=== PATIENT | female | born 1955 | race Asian ===

== ENCOUNTER → 2017-01-05 | Outpatient (CLI) | payer BC ==
[2017-01-05 11:25] LABS: ALT/SGPT 30 U/L (12-78); AST/SGOT 17 U/L (15-37); BLOOD UREA NITROGEN 17 mg/dl (7-18); BUN/CREATININE RATIO 22.6 (10-20); CALCIUM 9.2 mg/dl (8.5-10.1); CARBON DIOXIDE 27 mmol/L (21-32); CHLORIDE 104 mmol/L (98-107); CREATININE 0.77 mg/dl (0.60-1.20); GLUCOSE 89 mg/dl (70-99); POTASSIUM 3.7 mmol/L (3.5-5.1); SODIUM 140 mmol/L (136-145)
[2017-01-05 11:28] LABS: CHOLESTEROL 171 mg/dl (0-200); CHOLESTEROL/HDL RATIO 2.6; HDL CHOLESTEROL 65 mg/dl; LDL CHOLESTEROL CALCULATED 93 mg/dl; TRIGLYCERIDES 65 mg/dl (0-150); VERY LOW DENSITY LIPOPROT CALC 13 mg/dl
== END | disposition home or self-care (01) ==
LOC: C.LAB1850 09:17
PROVIDERS: ATTEND Internal Medicine
DX: E78.00 Pure hypercholesterolemia, unspecified (principal); M85.80 Other specified disorders of bone density and structure, unspecified site; E55.9 Vitamin D deficiency, unspecified

== ENCOUNTER → 2017-09-24 | Outpatient (CLI) | payer OTHER | END | disposition home or self-care (01) | LOC: C.MAMM 09:01 | PROVIDERS: ATTEND Internal Medicine | DX: M85.80 Other specified disorders of bone density and structure, unspecified site (principal) ==

== ENCOUNTER → 2017-10-07 | Outpatient (CLI) | payer OTHER ==
--- NOTE | 2017-10-07 13:52 | MAMMOGRAPHY REPORT ---
BILATERAL DIGITAL SCREENING MAMMOGRAM TOMOSYNTHESIS WITH CAD: 10/07/2017 CLINICAL HISTORY: Routine screening. TECHNIQUE: The study was acquired using full field digital technology and interpreted from soft copy. Breast tomosynthesis in addition to standard 2D mammography was performed. Current study was also ev aluated with a Computer Aided Detection (CAD) system. COMPARISON: Comparison is made to exams dated: 03/08/2015 mammogram, 12/30/2013 mammogram, 04/06/2012 m ammogram, 07/30/2010 mammogram, 06/26/2009 mammogram - [facility], and 09/29/2006. BREAST COMPOSITION: The tissue of both breasts is heterogeneously dense, which may obscure small mass es. FINDINGS: No suspicious masses, calcifications, or areas of architectural distortion are noted in either breast . There has been no significant interval change compared to prior exams. IMPRESSION: ACR BI-RADS CATEGORY 1: NEGATIVE There is no mammographic evidence of malignancy. A 1 year screening mammogram is recommended.( [id number]) The patient will receive written notification of the results. Some breast cancers are not detected with mammography. A negative mammographic report should not danielle y biopsy if a clinically suggestive mass is present. Vicky Chen M.D. ah/:10/07/2017 12:58:24 Picture Booker: RT Dick(Twyla)(M), [facility] letter sent: Normal 1/2 BI-RADS Code: ACR BI-RADS Category 1: Negative
== END | disposition home or self-care (01) ==
LOC: C.MAMM 10:50
PROVIDERS: ATTEND Obstetrics & Gynecology
DX: Z12.31 Encounter for screening mammogram for malignant neoplasm of breast (principal)

== ENCOUNTER 2022-07-27 10:07 | Inpatient (IN) ==
[2022-07-27] MEDS ORDERED: ALBUT/IPRATROP 3MG/0.5MG NEB 3 ML VIAL NEB STA (10:22)
--- NOTE | 2022-07-27 10:24 | Emergency Department Note ---
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 mmHg VBG HCO3 mmol/L VBG O2 Saturation % VBG Base Excess mEq/L Sodium (136-145) mmol/L Potassium (3.5-5.1) mmol/L Chloride (98-107) mmol/L Carbon Dioxide (21-32) mmol/L Anion Gap (3-11) BUN (6-23) mg/dl Creatinine (0.6-1.2) mg/dl Est Cr Clr Drug Dosing Est GFR ( Amer) ml/min Est GFR (Non-Af Amer) ml/min BUN/Creatinine Ratio (10-20) Glucose (70-99(Fasting)) mg/dl POC Glucose 68 L* (70-99) mg/dl Lactate (0.4-2.0) mmol/L Calcium (8.6-10.3) mg/dl Magnesium (1.7-2.4) mg/dl Total Bilirubin (0.2-1.0) mg/dl Direct Bilirubin (0-0.2) mg/dl AST (13-39) U/L ALT (7-52) U/L Alkaline Phosphatase (34-104) U/L Ammonia 33.0 Troponin I High Sens (0-14) pg/ml B-Natriuretic Peptide (0-100) pg/ml Total Protein (6.0-8.3) gm/dl Albumin (3.4-5.0) gm/dl Procalcitonin (0-0.5) ng/ml Ethyl Alcohol mg/dL < 10.0 (<10.0) mg/dl Adenovirus (PCR) (NotDetected) B. pertussis DNA (PCR) (NotDetected) B.parapertussis DNA PCR (NotDetected) C. pneumoniae DNA (PCR) (NotDetected) Coronavirus OC43 (PCR) (NotDetected) Coronavirus HKU1 (PCR) (NotDetected) Coronavirus 229E (PCR) (NotDetected) SARS-CoV-2 (PCR) (NotDetected) Coronavirus NL63 (PCR) (NotDetected) Human Metapneumovir PCR (NotDetected) Influenza Type A (PCR) (NotDetected) Influenza Type B (PCR) (NotDetected) M. pneumoniae (PCR) (NotDetected) Parainfluenza 1 (PCR) (NotDetected) Parainfluenza 2 (PCR) (NotDetected) Parainfluenza 3 (PCR) (NotDetected) Parainfluenza 4 (PCR) (NotDetected) RSV (PCR) (NotDetected) Entero/Rhino (PCR) (NotDetected) 07/27/22 Range/Units 12:21 WBC (4.8-10.8) K/ul RBC (4.20-5.40) M/uL Hgb (12.0-16.0) g/dl Hct (37.0-47.0) % MCV (80.0-100.0) fL MCH (25.0-34.0) pg MCHC (32.0-36.0) g/dL RDW Std Deviation (36.4-46.3) fL RDW Coeff of Lin (11.5-14.5) % Plt Count (130-400) K/uL MPV (9.4-12.4) fL Immature Gran % (Auto) % Neut % (Auto) % Lymph % (Auto) % [place] % (Auto) % Eos % (Auto) % Baso % (Auto) % Neut # (Auto) (1.40-6.50) K/uL Lymph # (Auto) (1.2-3.4) K/uL [place] # (Auto) (0.11-0.59) K/uL Eos # (Auto) (0-0.50) K/uL Baso # (Auto) (0-0.2) K/uL Immature Gran # (Auto) (0.01-0.20) K/uL Toxic Vacuolation Dohle Bodies Polychromasia Echinocytes PT (9.0-12.0) Seconds INR (0.9-1.1) VBG pH (7.36-7.41) VBG pCO2 (38-50) mmHg VBG pO2 mmHg VBG HCO3 mmol/L VBG O2 Saturation % VBG Base Excess mEq/L Sodium (136-145) mmol/L Potassium (3.5-5.1) mmol/L Chloride (98-107) mmol/L Carbon Dioxide (21-32) mmol/L Anion Gap (3-11) BUN (6-23) mg/dl Creatinine (0.6-1.2) mg/dl Est Cr Clr Drug Dosing Est GFR ( Amer) ml/min Est GFR (Non-Af Amer) ml/min BUN/Creatinine Ratio (10-20) Glucose (70-99(Fasting)) mg/dl POC Glucose (70-99) mg/dl Lactate 9.0 H* (0.4-2.0) mmol/L Calcium (8.6-10.3) mg/dl Magnesium (1.7-2.4) mg/dl Total Bilirubin (0.2-1.0) mg/dl Direct Bilirubin (0-0.2) mg/dl AST (13-39) U/L ALT (7-52) U/L Alkaline Phosphatase (34-104) U/L Ammonia Troponin I High Sens (0-14) pg/ml B-Natriuretic Peptide (0-100) pg/ml Total Protein (6.0-8.3) gm/dl Albumin (3.4-5.0) gm/dl Procalcitonin (0-0.5) ng/ml Ethyl Alcohol mg/dL (<10.0) mg/dl Adenovirus (PCR) (NotDetected) B. pertussis DNA (PCR) (NotDetected) B.parapertussis DNA PCR (NotDetected) C. pneumoniae DNA (PCR) (NotDetected) Coronavirus OC43 (PCR) (NotDetected) Coronavirus HKU1 (PCR) (NotDetected) Coronavirus 229E (PCR) (NotDetected) SARS-CoV-2 (PCR) (NotDetected) Coronavirus NL63 (PCR) (NotDetected) Human Metapneumovir PCR (NotDetected) Influenza Type A (PCR) (NotDetected) Influenza Type B (PCR) (NotDetected) M. pneumoniae (PCR) (NotDetected) Parainfluenza 1 (PCR) (NotDetected) Parainfluenza 2 (PCR) (NotDetected) Parainfluenza 3 (PCR) (NotDetected) Parainfluenza 4 (PCR) (NotDetected) RSV (PCR) (NotDetected) Entero/Rhino (PCR) (NotDetected) Administered Medications Norepinephrine Bitartrate (Levophed/D5w) 4 mg in 250 mls @ 134.438 mls/hr IV .Q1H52M [facility]; Protocol Stop: 08/26/22 13:59 Last Admin: 07/27/22 16:09 Dose: 0.5 mcg/kg/min, 134.4 mls/hr Documented By: CHRISTINE Co-signed By: WHIT Titration: 07/27/22 16:09 Dose: 0.5 mcg/kg/min, 134.4 mls/hr Documented By: CHRISTINE Co-signed By: WHIT Admin: 07/27/22 15:01 Dose: 0.5 mcg/kg/min, 134.4 mls/hr Documented By: OMEGA Co-signed By: MAURIZIO Vasopressin 20 units/ Sodium (Chloride) 101 mls @ 12.12 mls/hr IV .Q8H20M [facility] Stop: 08/26/22 14:14 Last Admin: 07/27/22 15:01 Dose: 0.04 unit/min, 12.1 mls/hr Documented By: OMEGA Co-signed By: MAURIZIO Sodium Bicarbonate 150 meq/ (Dextrose) 1,150 mls @ 150 mls/hr IV .Q7H40M [facility] Stop: 08/26/22 14:14 Last Admin: 07/27/22 15:04 Dose: 150 mls/hr Documented By: OMEGA Phytonadione 5 mg/ Dextrose 50.5 mls @ 101 mls/hr IV ONE ONE Stop: 07/27/22 16:59 Last Admin: 07/27/22 16:38 Dose: 101 mls/hr Documented By: CHRISTINE Fentanyl Citrate (Fentanyl Citrate) 2,500 mcg in 250 mls @ 2.5 mls/hr IV .Q96H [facility]; Protocol Stop: 08/10/22 16:29 Last Admin: 07/27/22 16:38 Dose: 25 mcg/hr, 2.5 mls/hr Documented By: CHRISTINE Co-signed By: CMP Discontinued Medications Albuterol (Albut/Ipratrop 3mg/0.5mg Neb 3 Ml Vial) 3 ml NEB NOW STA; Protocol Stop: 07/27/22 10:23 Last Admin: 07/27/22 11:06 Dose: 3 ml Documented By: OMEGA Sodium Chloride (Nss 1000ml) 1,000 mls @ 999 mls/hr IV .Q1H1M [facility] Stop: 07/27/22 11:30 Last Infusion: 07/27/22 16:11 Dose: 0 mls/hr Documented By: Admin: 07/27/22 13:32 Dose: 999 mls/hr Documented By: OMEGA Sodium Chloride (Nss 1000ml) 1,000 mls @ 999 mls/hr IV .Q1H1M ONE Stop: 07/27/22 11:44 Last Infusion: 07/27/22 16:11 Dose: 0 mls/hr Documented By: Admin: 07/27/22 13:32 Dose: 999 mls/hr Documented By: OMEGA Sodium Chloride (Nss 1000ml) 1,000 mls @ 999 mls/hr IV .Q1H1M ONE Stop: 07/27/22 12:04 Last Infusion: 07/27/22 16:11 Dose: 0 mls/hr Documented By: Admin: 07/27/22 14:51 Dose: 999 mls/hr Documented By: OMEGA Ceftriaxone Sodium (Rocephin) 2,000 mg in 70 mls @ 140 mls/hr IV NOW STA Stop: 07/27/22 11:48 Last Infusion: 07/27/22 16:11 Dose: 0 mls/hr Documented By: Admin: 07/27/22 13:35 Dose: 140 mls/hr Documented By: OMEGA Vancomycin HCl 1,500 mg/ (Sodium Chloride) 530 mls @ 200 mls/hr IV NOW STA; Protocol Stop: 07/27/22 14:02 Last Infusion: 07/27/22 16:11 Dose: 0 mls/hr Documented By: Admin: 07/27/22 12:00 Dose: 200 mls/hr Documented By: OMEGA Sodium Bicarbonate 150 meq/ (Sterile Water) 1,150 mls @ 150 mls/hr IV .Q7H40M [facility] Stop: 08/26/22 14:14 Last Admin: 07/27/22 16:34 Dose: Not Given Documented By: CHRISTINE Piperacillin Sod/Tazobactam Sod (Zosyn) 4.5 gm in 120 mls @ 240 mls/hr IV NOW ONE Stop: 07/27/22 14:45 Last Admin: 07/27/22 16:08 Dose: Not Given Documented By: CHRISTINE Calcium Chloride 1,000 mg/ (Dextrose) 60 mls @ 240 mls/hr IV NOW STA Stop: 07/27/22 15:44 Last Infusion: 07/27/22 16:34 Dose: 0 mls/hr Documented By: Admin: 07/27/22 16:08 Dose: 240 mls/hr Documented By: CHRISTINE Ioversol (Optiray 320 500ml) 113 ml IV ONCE ONE Stop: 07/27/22 10:57 Last Admin: 07/27/22 10:56 Dose: 113 ml Documented By: NUPUR Miscellaneous (Rapid Sequence Induction Bag) Confirm Administered Dose 1 each N/A .STK-MED ONE Stop: 07/27/22 13:50 Last Admin: 07/27/22 16:07 Dose: Not Given Documented By: CHRISTINE Magañaaneous (Stat Iv Infusion Titration Per Protocol) 1 each N/A NOW STA Stop: 07/27/22 13:54 Last Admin: 07/27/22 16:07 Dose: Not Given Documented By: CHRISTINE Magañaaneous (Stat Iv Infusion Titration Per Protocol) 1 each N/A NOW STA Stop: 07/27/22 14:15 Last Admin: 07/27/22 16:08 Dose: Not Given Documented By: CHRISTINE Norepinephrine Bitartrate (Norepinephrine/D5w 4 Mg/250 Ml) Confirm Administered Dose 4 mg IV .STK-MED ONE Stop: 07/27/22 13:51 Last Admin: 07/27/22 16:07 Dose: Not Given Documented By: CHRISTINE Propofol (Propofol Iv Emulsion 10 Mg/Ml 100 Ml Vial) Confirm Administered Dose 1,000 mg IV .STK-MED ONE Stop: 07/27/22 15:50 Last Admin: 07/27/22 16:09 Dose: 1,000 mg Documented By: CHRISTINE Co-signed By: WHIT Sodium Bicarbonate (Sodium Bicarbonate 8.4% Inj 50 Meq/50 Ml Vial) Confirm Administered Dose 150 meq .ROUTE .STK-MED ONE Stop: 07/27/22 14:07 Last Admin: 07/27/22 16:08 Dose: Not Given Documented By: CHRISTINE Sodium Bicarbonate (Sodium Bicarb 8.4% Inj 50 Meq/50 Ml Syr) Confirm Administered Dose 100 meq IV .STK-MED ONE Stop: 07/27/22 15:46 Last Admin: 07/27/22 16:14 Dose: Not Given Documented By: CHRISTINE Imaging Data Radiologist's Impression: Chest CTA 07/27/22 10:22 CT angio chest PE protocol, CT abd pelvis IV con only HISTORY: 66 years-old Female with PE, SOB. Acute shortness of breath with chest and abdominal pain TECHNIQUE: Multiple CTA images of the chest were obtained after the intravenous administration of 113 ml Optiray. Coronal and sagittal MIPS were obtained from the axial data set and were submitted for review. All measurements were obtained according to NASCET criteria. CT abdomen and pelvis with IV contrast only also obtained. A dose lowering technique was utilized adhering to the principles of ALARA. COMPARISON: None. FINDINGS: CTA: Small pericardial effusion. Moderate cardiomegaly with moderate coronary artery calcifications. No thoracic aortic aneurysm. Suboptimal evaluation of the pulmonary arterial tree secondary to respiratory motion artifact. No central pulmonary emboli are identified. CT CHEST: No thyroid nodule or lymphadenopathy identified. Subcentimeter epicardial lymph nodes. No pneumothorax, pleural effusion or overt pulmonary edema. 2.9 cm thin- walled cyst of the right lower lobe. Reticular interstitial opacities with intermixed groundglass and consolidative patchy densities are noted within the mid to lower lung zones. There are a few bilateral fissural nodules measuring up to 5 mm. Limited evaluation of the lungs secondary to respiratory motion artifact and upper extremity positioning. Unremarkable soft tissues. Nonspecific asymmetric moderate subcutaneous edema of the left chest and posterior left upper back. Heterogeneous enlargement and heterogeneity of the left deltoid muscle. Subcortical cystic changes of the left glenoid. Osteoarthritis of the shoulders and spine. No acute fracture identified. Chronic appearing mild supra endplate compression noted within the thoracic and lumbar spine. CT ABDOMEN/PELVIS: Motion degraded exam. No pneumatosis or pneumoperitoneum. Unremarkable spleen, pancreas and visualized adrenal glands. The gallbladder and liver are unremarkable. Probable cyst of the right hepatic lobe measures 6 mm. Patency of the hepatic and portal veins. No hydronephrosis. Mild nonspecific bilateral perinephric stranding. Urinary bladder wall thickening with partial distention. Hysterectomy. Atherosclerosis of the aorta without aneurysm. Subcentimeter retroperitoneal lymph nodes. No bowel obstruction. Colonic diverticulosis. The majority of the large bowel is decompressed. The appendix is not definitively seen. No acute fracture. Likely chronic superior endplate compression at T11-L1. IMPRESSION: 1. Motion degraded exam. No central pulmonary emboli identified. 2. Soft tissue edema surrounding the left shoulder with heterogeneity and enlargement of the left deltoid muscle. No acute fracture identified. Correlate with patient history and clinical exam findings. 3. Mid to lower lung zone predominant opacities of the lungs may represent a combination of atelectasis and scarring versus pneumonia. 4. No bowel obstruction or pneumoperitoneum. 5. Colonic diverticulosis. ACT 112: Negative or not required by law. The above report was generated using voice recognition software. It may contain grammatical, syntax or spelling errors. Electronically signed by: Deeapk Forman M.D. 07/27/2022 11:49 AM Head CTA 07/27/22 10:28 CT angio head wo/w CLINICAL HISTORY: 66 years-old Female with AMS. Acutely altered mental status COMPARISON STUDY: None TECHNIQUE: Unenhanced axial CT scan of the brain is performed. Subsequently, following the IV administration of 113 cc of Optiray, CT angiogram of the brain was performed from the skull base to the vertex. Images are reviewed in the axial, sagittal, and coronal planes. 3-D MIPS images are created and assessed. IV contrast was administered without complication. All measurements were obtained according to NASCET criteria. A dose lowering technique was utilized adhering to the principles of ALARA. FINDINGS: CT BRAIN: Motion degraded exam. Involutional changes with chronic microvascular ischemic disease. There is no acute intracranial hemorrhage, midline shift, hydrocephalus, intracranial mass, territorial ischemia or abnormal extra-axial collections. No abnormal intra-axial or extra-axial enhancement. Mastoid air cells and middle ear cavities are clear. No calvarial fracture. Paranasal sinuses are clear. CT ANGIOGRAM OF THE BRAIN: The imaged bilateral internal carotid arteries are patent with moderate atherosclerosis of the cavernous segments. The bilateral anterior and middle cerebral arteries are also patent. The vertebrobasilar system and posterior cerebral arteries are widely patent. . The right posterior cerebral artery. There is no aneurysm, high-grade stenosis, or proximal branch occlusion identified. Dural sinuses appear patent. IMPRESSION: 1. Motion degraded exam without acute intracranial abnormality identified. 2. Unremarkable CTA. ACT 112: Negative or not required by law. The above report was generated using voice recognition software. It may contain grammatical, syntax or spelling errors. Electronically signed by: Deepak Forman M.D. 07/27/2022 11:29 AM Abdomen/Pelvis CT 07/27/22 10:44 CT angio chest PE protocol, CT abd pelvis IV con only HISTORY: 66 years-old Female with PE, SOB. Acute shortness of breath with chest and abdominal pain TECHNIQUE: Multiple CTA images of the chest were obtained after the intravenous administration of 113 ml Optiray. Coronal and sagittal MIPS were obtained from the axial data set and were submitted for review. All measurements were obtained according to NASCET criteria. CT abdomen and pelvis with IV contrast only also obtained. A dose lowering technique was utilized adhering to the principles of ALARA. COMPARISON: None. FINDINGS: CTA: Small pericardial effusion. Moderate cardiomegaly with moderate coronary artery calcifications. No thoracic aortic aneurysm. Suboptimal evaluation of the pulmonary arterial tree secondary to respiratory motion artifact. No central pulmonary emboli are identified. CT CHEST: No thyroid nodule or lymphadenopathy identified. Subcentimeter epicardial lymph nodes. No pneumothorax, pleural effusion or overt pulmonary edema. 2.9 cm thin- walled cyst of the right lower lobe. Reticular interstitial opacities with intermixed groundglass and consolidative patchy densities are noted within the mid to lower lung zones. There are a few bilateral fissural nodules measuring up to 5 mm. Limited evaluation of the lungs secondary to respiratory motion artifact and upper extremity positioning. Unremarkable soft tissues. Nonspecific asymmetric moderate subcutaneous edema of the left chest and posterior left upper back. Heterogeneous enlargement and heterogeneity of the left deltoid muscle. Subcortical cystic changes of the left glenoid. Osteoarthritis of the shoulders and spine. No acute fracture identified. Chronic appearing mild supra endplate compression noted within the thoracic and lumbar spine. CT ABDOMEN/PELVIS: Motion degraded exam. No pneumatosis or pneumoperitoneum. Unremarkable spleen, pancreas and visualized adrenal glands. The gallbladder and liver are unremarkable. Probable cyst of the right hepatic lobe measures 6 mm. Patency of the hepatic and portal veins. No hydronephrosis. Mild nonspecific bilateral perinephric stranding. Urinary bladder wall thickening with partial distention. Hysterectomy. Atherosclerosis of the aorta without aneurysm. Subcentimeter retroperitoneal lymph nodes. No bowel obstruction. Colonic diverticulosis. The majority of the large bowel is decompressed. The appendix is not definitively seen. No acute fracture. Likely chronic superior endplate compression at T11-L1. IMPRESSION: 1. Motion degraded exam. No central pulmonary emboli identified. 2. Soft tissue edema surrounding the left shoulder with heterogeneity and enlargement of the left deltoid muscle. No acute fracture identified. Correlate with patient history and clinical exam findings. 3. Mid to lower lung zone predominant opacities of the lungs may represent a combination of atelectasis and scarring versus pneumonia. 4. No bowel obstruction or pneumoperitoneum. 5. Colonic diverticulosis. ACT 112: Negative or not required by law. The above report was generated using voice recognition software. It may contain grammatical, syntax or spelling errors. Electronically signed by: Deepak Forman M.D. 07/27/2022 11:49 AM Discharge Plan Visit Data Chief Complaint: Shortness of Breath/Dyspnea Stated Complaint: FEVER, DIARRHEA, DIFFICULTY BREATHING ED Provider: Mendel King Discharge Problem: Metabolic acidosis Patient Disposition: Admitted As Inpatient Discharge Instructions Interventions: ED Discharge Assessment Last Done: 07/27/22 15:57
[2022-07-27] MEDS ORDERED: SODIUM CHLORIDE 0.9% 1000ML 1,000 ML IV SCH (10:30)
[2022-07-27] MEDS ORDERED: SODIUM CHLORIDE 0.9% 1000ML 1,000 ML IV ONE ×2 (10:44→11:04)
[2022-07-27] MEDS ORDERED: OPTIRAY 320 500ml IV ONE (10:56)
[2022-07-27 11:13] LABS: Carbon Dioxide 9 mmol/L (21-32)
[2022-07-27 11:14] LABS: Alanine Aminotransferase 101 U/L (7-52); Albumin Level 2.9 gm/dl (3.4-5.0); Alkaline Phosphatase 153 U/L (34-104); Anion Gap 28 (3-11); Aspartate Aminotransferase 146 U/L (13-39); BUN Creatinine Ratio 12.8 (10-20); Bilirubin Direct 1.4 mg/dl (0-0.2); Blood Urea Nitrogen 60 mg/dl (6-23); Calcium 8.3 mg/dl (8.6-10.3); Chloride 84 mmol/L (98-107); Est GFR (African American) 10.6 ml/min; Est GFR (Non-African American) 9.2 ml/min; Glucose 75 mg/dl (70-99(Fasting)); Potassium 3.6 mmol/L (3.5-5.1); Sodium 121 mmol/L (136-145); Total Protein 6.4 gm/dl (6.0-8.3)
[2022-07-27 11:17] LABS: Troponin I High Sensitivity 26.6 pg/ml (0-14)
[2022-07-27 11:18] LABS: Basophils # (auto) 0.12 K/uL (0-0.2); Basophils % (auto) 0.6 %; Dohle Bodies 2+; Echinocytes 1+; Eosinophils # (auto) 0.13 K/uL (0-0.50); Eosinophils % (auto) 0.6 %; Hematocrit (blood only) 36.1 % (37.0-47.0); Hemoglobin 12.3 g/dl (12.0-16.0); Immature Granulocytes # (auto) 0.75 K/uL (0.01-0.20); Immature Granulocytes % (auto) 3.6 %; Lymphocytes # (auto) 1.69 K/uL (1.2-3.4); Lymphocytes % (auto) 8.2 %; Mean Corpuscular Hemoglobin 27.6 pg (25.0-34.0); Mean Corpuscular Hgb Conc 34.1 g/dL (32.0-36.0); Mean Corpuscular Volume 80.9 fL (80.0-100.0); Mean Platelet Volume 10.2 fL (9.4-12.4); Monocytes # (auto) 0.39 K/uL (0.11-0.59); Monocytes % (auto) 1.9 %; Neutrophils # (auto) 17.64 K/uL (1.40-6.50); Neutrophils % (auto) 85.1 %; Platelet Count 409 K/uL (130-400); Polychromasia 1+; RDW Coefficient of Variation 13.2 % (11.5-14.5); RDW Standard Deviation 38.9 fL (36.4-46.3); Red Blood Count 4.46 M/uL (4.20-5.40); Toxic Vacuolation 2+; White Blood Count 20.72 K/ul (4.8-10.8)
[2022-07-27] MEDS ORDERED: cefTRIAXone SODIUM 2,000 MG/70 ML BAG IV STA (11:19)
[2022-07-27 11:20] LABS: INR 1.2 (0.9-1.1); Prothrombin Time 13.2 Seconds (9.0-12.0)
[2022-07-27 11:24] LABS: Base Excess VBG -20.3 mEq/L; HCO3 VBG 10 mmol/L; Oxygen Saturation VBG < 60.0 %; PCO2 VBG 41 mmHg (38-50); PO2 VBG 33 mmHg; pH VBG 7.01 (7.36-7.41)
[2022-07-27] MEDS ORDERED: VANCOMYCIN HCL 1,500 MG in SODIUM CHLORIDE 0.9% 500 ML IV STA (11:24)
--- NOTE | 2022-07-27 11:32 | CT Scan Report ---
CT angio head wo/w CLINICAL HISTORY: 66 years-old Female with AMS. Acutely altered mental status COMPARISON STUDY: None TECHNIQUE: Unenhanced axial CT scan of the brain is performed. Subsequently, following the IV adminis tration of 113 cc of Optiray, CT angiogram of the brain was performed from the skull base to the vert ex. Images are reviewed in the axial, sagittal, and coronal planes. 3-D MIPS images are created and a ssessed. IV contrast was administered without complication. All measurements were obtained according to NASCET criteria. A dose lowering technique was utilized adhering to the principles of ALARA. FINDINGS: CT BRAIN: Motion degraded exam. Involutional changes with chronic microvascular ischemic disease. There is no a cute intracranial hemorrhage, midline shift, hydrocephalus, intracranial mass, territorial ischemia o r abnormal extra-axial collections. No abnormal intra-axial or extra-axial enhancement. Mastoid air cells and middle ear cavities are clear. No calvarial fracture. Paranasal sinuses are clear. CT ANGIOGRAM OF THE BRAIN: The imaged bilateral internal carotid arteries are patent with moderate atherosclerosis of the cavern ous segments. The bilateral anterior and middle cerebral arteries are also patent. The vertebrobasila r system and posterior cerebral arteries are widely patent. . The right posterior cerebral artery. Th ere is no aneurysm, high-grade stenosis, or proximal branch occlusion identified. Dural sinuses appea r patent. IMPRESSION: 1. Motion degraded exam without acute intracranial abnormality identified. 2. Unremarkable CTA. ACT 112: Negative or not required by law. The above report was generated using voice recognition software. It may contain grammatical, syntax o r spelling errors. Electronically signed by: Deepak Forman M.D. 07/27/2022 11:29 AM
[2022-07-27 11:48] LABS: Adenovirus PCR Not Detected (NotDetected); Bordetella parapertussis PCR Not Detected (NotDetected); Bordetella pertussis PCR Not Detected (NotDetected); Chlamydia pneumoniae PCR Not Detected (NotDetected); Coronavirus 229E PCR Not Detected (NotDetected); Coronavirus CoV-2 (COVID19)PCR Not Detected (NotDetected); Coronavirus HKU1 PCR Not Detected (NotDetected); Coronavirus NL63 PCR Not Detected (NotDetected); Coronavirus OC43PCR Not Detected (NotDetected); Human Metapneumovirus PCR Not Detected (NotDetected); Influenza A PCR Not Detected (NotDetected); Influenza B PCR Not Detected (NotDetected); Mycoplasma pneumoniae PCR Not Detected (NotDetected); Parainfluenza Virus 1 PCR Not Detected (NotDetected); Parainfluenza Virus 2 PCR Not Detected (NotDetected); Parainfluenza Virus 3 PCR Not Detected (NotDetected); Parainfluenza Virus 4 PCR Not Detected (NotDetected); Respiratory Syncytial VirusPCR Not Detected (NotDetected)
--- NOTE | 2022-07-27 11:51 | CT Scan Report ---
CT angio chest PE protocol, CT abd pelvis IV con only HISTORY: 66 years-old Female with PE, SOB. Acute shortness of breath with chest and abdominal pain TECHNIQUE: Multiple CTA images of the chest were obtained after the intravenous administration of 113 ml Optiray. Coronal and sagittal MIPS were obtained from the axial data set and were submitted for review. All measurements were obtained according to NASCET criteria. CT abdomen and pelvis with IV c ontrast only also obtained. A dose lowering technique was utilized adhering to the principles of [place]TY [place]. COMPARISON: None. FINDINGS: CTA: Small pericardial effusion. Moderate cardiomegaly with moderate coronary artery calcifications. No th oracic aortic aneurysm. Suboptimal evaluation of the pulmonary arterial tree secondary to respiratory motion artifact. No central pulmonary emboli are identified. CT CHEST: No thyroid nodule or lymphadenopathy identified. Subcentimeter epicardial lymph nodes. No pneumothora x, pleural effusion or overt pulmonary edema. 2.9 cm thin-walled cyst of the right lower lobe. Reticu lar interstitial opacities with intermixed groundglass and consolidative patchy densities are noted w ithin the mid to lower lung zones. There are a few bilateral fissural nodules measuring up to 5 mm. L imited evaluation of the lungs secondary to respiratory motion artifact and upper extremity positioni ng. Unremarkable soft tissues. Nonspecific asymmetric moderate subcutaneous edema of the left chest a nd posterior left upper back. Heterogeneous enlargement and heterogeneity of the left deltoid muscle. Subcortical cystic changes of the left glenoid. Osteoarthritis of the shoulders and spine. No acute fracture identified. Chronic appearing mild supra endplate compression noted within the thoracic and lumbar spine. CT ABDOMEN/PELVIS: Motion degraded exam. No pneumatosis or pneumoperitoneum. Unremarkable spleen, pancreas and visualize d adrenal glands. The gallbladder and liver are unremarkable. Probable cyst of the right hepatic lobe measures 6 mm. Patency of the hepatic and portal veins. No hydronephrosis. Mild nonspecific bilatera l perinephric stranding. Urinary bladder wall thickening with partial distention. Hysterectomy. Ather osclerosis of the aorta without aneurysm. Subcentimeter retroperitoneal lymph nodes. No bowel obstruction. Colonic diverticulosis. The majority of the large bowel is decompressed. The ap pendix is not definitively seen. No acute fracture. Likely chronic superior endplate compression at T 11-L1. IMPRESSION: 1. Motion degraded exam. No central pulmonary emboli identified. 2. Soft tissue edema surrounding the left shoulder with heterogeneity and enlargement of the left del toid muscle. No acute fracture identified. Correlate with patient history and clinical exam findings. 3. Mid to lower lung zone predominant opacities of the lungs may represent a combination of atelectas is and scarring versus pneumonia. 4. No bowel obstruction or pneumoperitoneum. 5. Colonic diverticulosis. ACT 112: Negative or not required by law. The above report was generated using voice recognition software. It may contain grammatical, syntax o r spelling errors. Electronically signed by: Deepak Forman M.D. 07/27/2022 11:49 AM
[2022-07-27 11:52] LABS: Rhinovirus/Enterovirus PCR DETECTED (NotDetected)
--- NOTE | 2022-07-27 13:44 | History & Physical Report ---
Date of Service July 27, 2022 Assessment & Plan (1) Cardiac arrest: Plan: -Admit to the ICU -Patient quickly became unresponsive and coded shortly after -ROSC was achieved, see code documentation for details -Review of telemetry shows the patient getting progressively more bradycardic and then developed complete heart block -Likely due to her severe acidosis -Currently intubated and on Norepi + Vasopressin -Rest of care per the ICU staff (2) Severe sepsis: Plan: -Patient arrived with significant leukocytosis, tachycardia, AMS, tachypenia, and hypotensive -Procal is 96 -Differential is broad at this time including but not limited to pneumonia, UTI, gastroenteritis, 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 -S/P 3L NSS, dose of vancomycin and ceftriaxone in the ED -Initial lactate at 14 with 2 hour repeat of 9 -Spoke with ICU staff, they would like to continue with vancomycin + Zosyn for now -Repeat labs currently in process, will review -Rest of care per the ICU staff (3) Acute renal failure: Plan: -Cr today at 4.67, baseline appears to be near 1.0 -Exactly etiology unknown but hypotension and severe sepsis are at least contributing -No sign of obstruction in CT of the abd/pelvis -Patient was without urine output after perla was place, this was after 3L NSS was given -Spoke to ICU staff, will wait to consider transfer for CRRT until repeat labs are back -Rest of care per the ICU staff (4) Acute respiratory failure: Plan: -Patient was in respiratory distress on arrival but was able to initially protect her own airway -Currently intubated as she became unresponsive prior to her cardiac arrest -Patient noted to have pneumonia on CTA Chest and repeat CXR showing significant pulmonary edema S/P intubation -Patient likely experienced flash pulmonary edema after receiving 3L NSS and in acute renal failure -Currently stable on mechanical ventilator -Continue abx for possible pneumonia -Rest of care per the ICU team (5) High anion gap metabolic acidosis: Plan: -AG of 28 with bicarb of 9 on arrival, lactate at 14 --> 9 after initial fluid resuscitation -Likely being driven by severe dehydration + severe sepsis and acute renal failure -Initial ABG pH was 7.0 -Bicarb has been started during code, continue for now -Continue to trend blood gases -Rest of care per the ICU team (6) Elevated troponin: Plan: -Initial high sen trop at 26 -The patient had been without chest pain or pressure per -Initial ECG on arrival showed sinus tach with age undetermined anterior infarct -Likely due to demand from her severe illness and hypotension -Now S/P cardiac arrest -Rest of care per the ICU team (7) Hyponatremia: Plan: -Initial sodium at 121 with a glucose of 68 -Likely multifactorial including dehydration, renal failure, and possible SIADH from severe illness -Repeat labs are in process S/P 3L NSS -Perla cath in place, continue to monitor intake and output -Rest of care per the ICU team (8) Elevated LFTs: Plan: -No sign of obstruction CT of the abd/pelvis today -Likely related to severe sepsis and hypotension but cannot rule out other causes such as acute hepatitis -Alcohol level negative, acetaminophen level, salicylate level, and acute hepat itis panel have been ordered -Hold atorvastatin -Rest of care per the ICU team (9) Rhinovirus: Plan: -Found on full respiratory biofire today -Respiratory support per the ICU team (10) HTN (hypertension): Plan: -Currently stable on Norepi and Vasopressin -Has been hypotensive due to dehydration, severe sepsis, and significant acidosis -Hold antihypertensives -Rest of care per ICU staff (11) Hypercholesterolemia: Plan: -Hold atorvastatin due to elevated LFT's Plan The patient was seen with and discussed with Dr. Malik at the time of the admission History of Present Illness Chief Complaint: Generalized weakness, AMS, SOB Primary Care Provider: Puneet Mcrae MD Kya is a 66 year old female with a PMH significant for HTN, hyperlipidemia, vit D deficiency who presented to the [facility] ED on 07/27/22 with complaints of increased WOB and confusion. Per the ED staff, the patients reported that they returned home from a trip to [place] on 07/24. Shortly after their plane landed the patient developed a fever. Since then she has been experiencing fever, chills, generalized weakness and increased WOB. In the ED she was noted to be hypotensive at 78/57, tachycardic at 112, respirations of 36, initially stable on 15L NRB, and afebrile. Labs were significant for a leukocytosis of 20 with left shift of 17, platelets of 409, cr of 4.67 (baseline appears to be 0.9), bun of 60, AG of 28 with bicarb of 9, chloride of 84, sodium of 121, glucose of 68, total bili of 2.0, direct bili of 1.4, ALT of 101, AST of 146, alk phos of 153, initial high sen trop of 26, lact ate of 14, VBG pH of 7.0, pCO2 of 41 and pO2 of 33, INR of 1.2, procal of 96, Entero/rhinovirus positive. CTA of the head w/wo con was read as Motion degraded exam without acute intracranial abnormality identified. 2. Unremarkable CTA.. CTA of the chest and CT of the abd/pelvis w/IV con was read as 1. Motion degraded exam. No central pulmonary emboli identified. 2. Soft tissue edema surrounding the left shoulder with heterogeneity and enlargement of the left deltoid muscle. No acute fracture identified. Correlate with patient history and clinical exam findings. 3. Mid to lower lung zone predominant opacities of the lungs may represent a combination of atelectasis and scarring versus pneumonia. 4. No bowel obstruction or pneumoperitoneum. 5. Colonic diverticulosis.". Prior to admission the patient was given 3L NSS, Vancomycin, ceftriaxone, and a duoneb treatment. At the time of the exam the patient was slouched to the left, being held up by nursing staff who was trying to arouse her without success. The patient would not respond to voice or sternal rub, was tachypneic, and bradycardic in the 40- 50's. I immediately went and got the ED provider as he had given sign out that the patient had been alert and oriented. Upon re-examination of the patient the ED physician confirmed that this was a sudden and severe change in her condition. The patient became progressively more bradycardic and tachypneic. The ED staff began intubation as I took the patient's to the family iehartingtonce room to speak further with him. He states that they had recently arrived [place] in the [place] after traveling in [place], [place], and [place]. They returned home on 07/24. He states that approximately a week prior to 07/24 the patient developed congestion with a non-productive cough initially. As the week progressed the patient started to have green-yellow sputum production with her cough and sinus drainage. Her appetite had been poor over this time. He denies her complaining of headache, neurologic symptoms, chest pain, abd/pain, or urinary symptoms. After they arrived home the patient began having 3-4 episodes of non-bloody diarrhea daily. She was only able to have sips of water during this time as well. This am she was very weak and seemed more confused with increased respiratory distress, prompting him to bring her to the ED. He states that she is a Full Code and he is her POA. As I was speaking with the patient's the patient reportedly lost her pulse and a code blue was called. I explained to the that the patient's heart had stopped and they will be doing CPR. I instructed him to stay in the Grievance room and he will be updated shortly. Please re Allergies Allergy/AdvReac Type Severity Reaction Status Date / Time No Known Drug Allergies Allergy Verified 12/16/21 09:40 Home Medications Medication Instructions Recorded Confirmed Type aspirin 81 mg tablet,delayed 81 mg PO DAILY 01/25/19 07/27/22 History release atovaquone 250 mg-proguanil 100 mg See Rx Instructions PO .COMPLEX 01/03/22 07/27/22 Rx tablet (Malarone) #30 tabs amlodipine 5 mg tablet 5 mg PO DAILY #90 tabs 02/11/22 07/27/22 Rx atorvastatin 10 mg tablet 10 mg PO DAILY #90 tabs 02/11/22 07/27/22 Rx Past Med/Surg History Medical History (Updated 07/27/22 @ 21:58 by Stefan Sebastian PA-C) Breast lump resolved Diverticulosis of colon Encounter for annual routine gynecological examination Hemorrhoids Surgical History H/O dilation and curettage History of total abdominal hysterectomy and bilateral salpingo-oophorectomy S/P appendectomy Family History Sister Ovarian cancer Idiopathic thrombocytopenia purpura Father Idiopathic thrombocytopenia purpura Heart failure Denies family history of Breast cancer Colorectal cancer Social History Smoking Status: Never smoker Second Hand Exposure: No; Do You Dip or Chew Tobacco: No; Hx Alcohol Use: Yes Alcohol type: wine Hx Substance Use: No Preferred Language: Polish Communication Ability: Effective Manager Furniture Required: No Beliefs That Will Affect Care: None marital status: Current Living Situation: Spouse current occupational status: employed 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[employer], [employer] Feels Safe at Home: Yes caffeine: Yes Dental Care, Regularly: Yes Physical Activity Frequency: 3-4 Times per Week Seatbelt Use: always Sunscreen Use: Yes Assistive Devices: None Physical Exam Physical Exam: Limited exam due to dramatic decline in the patient's presentation Physical Exam: General: Unresponsive, ashen and toxic appearing Chest/Pulm: Tachypneic with symmetrical chest expansion Musculoskeletal: Not moving extremities spontaneously, slouched to the left and leaning on nurse Extremities: Weak peripheral pulses with pallor in the upper and lower extremities Skin: Ashen Neuro: Unresponsive to voice and painful stimuli Psych: Unconscious Results & Data Results & Data Vital Signs (Past 12 Hours) Vital Signs Temp Pulse Pulse Resp BP BP Pulse Ox 07/27/22 10:22 94 07/27/22 10:22 118 H 36 H 94 07/27/22 10:22 36.5 C 118 H 36 H 78/57 L 94 07/27/22 13:27 109 H 24 93/56 L 100 07/27/22 11:45 118 H 28 H 91/53 L 07/27/22 10:22 112 H O2 Del Method O2 Flow Rate 07/27/22 10:22 Non-rebreather 15 07/27/22 10:22 Non-rebreather 07/27/22 10:22 Non-rebreather 07/27/22 13:27 Oxymask 4 07/27/22 11:45 07/27/22 10:22 Laboratory Results Abnormal lab results 07/27/22 07/27/22 07/27/22 Range/Units 10:32 10:32 10:32 WBC 20.72 H (4.8-10.8) K/ul RBC (4.20-5.40) M/uL Hgb (12.0-16.0) g/dl Hct 36.1 L (37.0-47.0) % Plt Count 409 H (130-400) K/uL Neut # (Auto) 17.64 H (1.40-6.50) K/uL Immature Gran # (Auto) 0.75 H (0.01-0.20) K/uL PT 13.2 H (9.0-12.0) Seconds INR 1.2 H (0.9-1.1) VBG pH (7.36-7.41) Sodium 121 L (136-145) mmol/L Chloride 84 L (98-107) mmol/L Carbon Dioxide 9 L* (21-32) mmol/L Anion Gap 28 H (3-11) BUN 60 H (6-23) mg/dl Creatinine 4.67 H* (0.6-1.2) mg/dl POC Glucose (70-99) mg/dl Lactate (0.4-2.0) mmol/L Calcium 8.3 L (8.6-10.3) mg/dl Total Bilirubin 2.0 H (0.2-1.0) mg/dl Direct Bilirubin 1.4 H (0-0.2) mg/dl AST 146 H (13-39) U/L ALT 101 H (7-52) U/L Alkaline Phosphatase 153 H (34-104) U/L Troponin I High Sens 26.6 H (0-14) pg/ml B-Natriuretic Peptide (0-100) pg/ml Albumin 2.9 L (3.4-5.0) gm/dl Procalcitonin (0-0.5) ng/ml Entero/Rhino (PCR) (NotDetected) 07/27/22 07/27/22 07/27/22 Range/Units 10:32 10:32 10:32 WBC (4.8-10.8) K/ul RBC (4.20-5.40) M/uL Hgb (12.0-16.0) g/dl Hct (37.0-47.0) % Plt Count (130-400) K/uL Neut # (Auto) (1.40-6.50) K/uL Immature Gran # (Auto) (0.01-0.20) K/uL PT (9.0-12.0) Seconds INR (0.9-1.1) VBG pH 7.01 L (7.36-7.41) Sodium (136-145) mmol/L Chloride (98-107) mmol/L Carbon Dioxide (21-32) mmol/L Anion Gap (3-11) BUN (6-23) mg/dl Creatinine (0.6-1.2) mg/dl POC Glucose (70-99) mg/dl Lactate 14.4 H* (0.4-2.0) mmol/L Calcium (8.6-10.3) mg/dl Total Bilirubin (0.2-1.0) mg/dl Direct Bilirubin (0-0.2) mg/dl AST (13-39) U/L ALT (7-52) U/L Alkaline Phosphatase (34-104) U/L Troponin I High Sens (0-14) pg/ml B-Natriuretic Peptide (0-100) pg/ml Albumin (3.4-5.0) gm/dl Procalcitonin 96.15 H (0-0.5) ng/ml Entero/Rhino (PCR) (NotDetected) 07/27/22 07/27/22 07/27/22 Range/Units 10:32 11:12 11:15 WBC (4.8-10.8) K/ul RBC (4.20-5.40) M/uL Hgb (12.0-16.0) g/dl Hct (37.0-47.0) % Plt Count (130-400) K/uL Neut # (Auto) (1.40-6.50) K/uL Immature Gran # (Auto) (0.01-0.20) K/uL PT (9.0-12.0) Seconds INR (0.9-1.1) VBG pH (7.36-7.41) Sodium (136-145) mmol/L Chloride (98-107) mmol/L Carbon Dioxide (21-32) mmol/L Anion Gap (3-11) BUN (6-23) mg/dl Creatinine (0.6-1.2) mg/dl POC Glucose 68 L* (70-99) mg/dl Lactate (0.4-2.0) mmol/L Calcium (8.6-10.3) mg/dl Total Bilirubin (0.2-1.0) mg/dl Direct Bilirubin (0-0.2) mg/dl AST (13-39) U/L ALT (7-52) U/L Alkaline Phosphatase (34-104) U/L Troponin I High Sens (0-14) pg/ml B-Natriuretic Peptide 510 H (0-100) pg/ml Albumin (3.4-5.0) gm/dl Procalcitonin (0-0.5) ng/ml Entero/Rhino (PCR) DETECTED A* (NotDetected) 07/27/22 07/27/22 07/27/22 Range/Units 12:21 14:10 14:44 WBC (4.8-10.8) K/ul RBC 2.99 L (4.20-5.40) M/uL Hgb 8.3 L D (12.0-16.0) g/dl Hct 24.2 L (37.0-47.0) % Plt Count (130-400) K/uL Neut # (Auto) (1.40-6.50) K/uL Immature Gran # (Auto) (0.01-0.20) K/uL PT (9.0-12.0) Seconds INR (0.9-1.1) VBG pH (7.36-7.41) Sodium (136-145) mmol/L Chloride (98-107) mmol/L Carbon Dioxide (21-32) mmol/L Anion Gap (3-11) BUN (6-23) mg/dl Creatinine (0.6-1.2) mg/dl POC Glucose 48 L* (70-99) mg/dl Lactate 9.0 H* (0.4-2.0) mmol/L Calcium (8.6-10.3) mg/dl Total Bilirubin (0.2-1.0) mg/dl Direct Bilirubin (0-0.2) mg/dl AST (13-39) U/L ALT (7-52) U/L Alkaline Phosphatase (34-104) U/L Troponin I High Sens (0-14) pg/ml B-Natriuretic Peptide (0-100) pg/ml Albumin (3.4-5.0) gm/dl Procalcitonin (0-0.5) ng/ml Entero/Rhino (PCR) (NotDetected) Diagnostic Findings Chest CTA 07/27/22 10:22 CT angio chest PE protocol, CT abd pelvis IV con only HISTORY: 66 years-old Female with PE, SOB. Acute shortness of breath with chest and abdominal pain TECHNIQUE: Multiple CTA images of the chest were obtained after the intravenous administration of 113 ml Optiray. Coronal and sagittal MIPS were obtained from the axial data set and were submitted for review. All measurements were obtained according to NASCET criteria. CT abdomen and pelvis with IV contrast only also obtained. A dose lowering technique was utilized adhering to the principles of ALARA. COMPARISON: None. FINDINGS: CTA: Small pericardial effusion. Moderate cardiomegaly with moderate coronary artery calcifications. No thoracic aortic aneurysm. Suboptimal evaluation of the pulmonary arterial tree secondary to respiratory motion artifact. No central pulmonary emboli are identified. CT CHEST: No thyroid nodule or lymphadenopathy identified. Subcentimeter epicardial lymph nodes. No pneumothorax, pleural effusion or overt pulmonary edema. 2.9 cm thin-w alled cyst of the right lower lobe. Reticular interstitial opacities with intermixed groundglass and consolidative patchy densities are noted within the mid to lower lung zones. There are a few bilateral fissural nodules measuring up to 5 mm. Limited evaluation of the lungs secondary to respiratory motion artifact and upper extremity positioning. Unremarkable soft tissues. Nonspecific asymmetric moderate subcutaneous edema of the left chest and posterior left upper back. Heterogeneous enlargement and heterogeneity of the left deltoid muscle. Subcortical cystic changes of the left glenoid. Osteoarthritis of the shoulders and spine. No acute fracture identified. Chronic appearing mild supra endplate compression noted within the thoracic and lumbar spine. CT ABDOMEN/PELVIS: Motion degraded exam. No pneumatosis or pneumoperitoneum. Unremarkable spleen, pancreas and visualized adrenal glands. The gallbladder and liver are unremarkable. Probable cyst of the right hepatic lobe measures 6 mm. Patency of the hepatic and portal veins. No hydronephrosis. Mild nonspecific bilateral perinephric stranding. Urinary bladder wall thickening with partial distention. Hysterectomy. Atherosclerosis of the aorta without aneurysm. Subcentimeter retroperitoneal lymph nodes. No bowel obstruction. Colonic diverticulosis. The majority of the large bowel is decompressed. The appendix is not definitively seen. No acute fracture. Likely chronic superior endplate compression at T11-L1. IMPRESSION: 1. Motion degraded exam. No central pulmonary emboli identified. 2. Soft tissue edema surrounding the left shoulder with heterogeneity and enlargement of the left deltoid muscle. No acute fracture identified. Correlate with patient history and clinical exam findings. 3. Mid to lower lung zone predominant opacities of the lungs may represent a combination of atelectasis and scarring versus pneumonia. 4. No bowel obstruction or pneumoperitoneum. 5. Colonic diverticulosis. ACT 112: Negative or not required by law. The above report was generated using voice recognition software. It may contain grammatical, syntax or spelling errors. Electronically signed by: Deepak Forman M.D. 07/27/2022 11:49 AM Head CTA 07/27/22 10:28 CT angio head wo/w CLINICAL HISTORY: 66 years-old Female with AMS. Acutely altered mental status COMPARISON STUDY: None TECHNIQUE: Unenhanced axial CT scan of the brain is performed. Subsequently, following the IV administration of 113 cc of Optiray, CT angiogram of the brain was performed from the skull base to the vertex. Images are reviewed in the axial, sagittal, and coronal planes. 3-D MIPS images are created and assessed. IV contrast was administered without complication. All measurements were obt ained according to NASCET criteria. A dose lowering technique was utilized adhering to the principles of ALARA. FINDINGS: CT BRAIN: Motion degraded exam. Involutional changes with chronic microvascular ischemic disease. There is no acute intracranial hemorrhage, midline shift, hydrocephalus, intracranial mass, territorial ischemia or abnormal extra-axial collections. No abnormal intra-axial or extra-axial enhancement. Mastoid air cells and middle ear cavities are clear. No calvarial fracture. Paranasal sinuses are clear. CT ANGIOGRAM OF THE BRAIN: The imaged bilateral internal carotid arteries are patent with moderate atherosclerosis of the cavernous segments. The bilateral anterior and middle cerebral arteries are also patent. The vertebrobasilar system and posterior cerebral arteries are widely patent. . The right posterior cerebral artery. There is no aneurysm, high-grade stenosis, or proximal branch occlusion identified. Dural sinuses appear patent. IMPRESSION: 1. Motion degraded exam without acute intracranial abnormality identified. 2. Unremarkable CTA. ACT 112: Negative or not required by law. The above report was generated using voice recognition software. It may contain grammatical, syntax or spelling errors. Electronically signed by: Deepak Forman M.D. 07/27/2022 11:29 AM Abdomen/Pelvis CT 07/27/22 10:44 CT angio chest PE protocol, CT abd pelvis IV con only HISTORY: 66 years-old Female with PE, SOB. Acute shortness of breath with chest and abdominal pain TECHNIQUE: Multiple CTA images of the chest were obtained after the intravenous administration of 113 ml Optiray. Coronal and sagittal MIPS were obtained from the axial data set and were submitted for review. All measurements were obtai pedro according to NASCET criteria. CT abdomen and pelvis with IV contrast only also obtained. A dose lowering technique was utilized adhering to the principles of ALARA. COMPARISON: None. FINDINGS: CTA: Small pericardial effusion. Moderate cardiomegaly with moderate coronary artery calcifications. No thoracic aortic aneurysm. Suboptimal evaluation of the pulmonary arterial tree secondary to respiratory motion artifact. No central pulmonary emboli are identified. CT CHEST: No thyroid nodule or lymphadenopathy identified. Subcentimeter epicardial lymph nodes. No pneumothorax, pleural effusion or overt pulmonary edema. 2.9 cm thin- walled cyst of the right lower lobe. Reticular interstitial opacities with intermixed groundglass and consolidative patchy densities are noted within the mid to lower lung zones. There are a few bilateral fissural nodules measuring up to 5 mm. Limited evaluation of the lungs secondary to respiratory motion artifact and upper extremity positioning. Unremarkable soft tissues. Nonspecific asymmetric moderate subcutaneous edema of the left chest and posterior left upper back. Heterogeneous enlargement and heterogeneity of the left deltoid muscle. Subcortical cystic changes of the left glenoid. Osteoarthritis of the shoulders and spine. No acute fracture identified. Chronic appearing mild supra endplate compression noted within the thoracic and lumbar spine. CT ABDOMEN/PELVIS: Motion degraded exam. No pneumatosis or pneumoperitoneum. Unremarkable spleen, pancreas and visualized adrenal glands. The gallbladder and liver are unremarkable. Probable cyst of the right hepatic lobe measures 6 mm. Patency of the hepatic and portal veins. No hydronephrosis. Mild nonspecific bilateral perinephric stranding. Urinary bladder wall thickening with partial distention. Hysterectomy. Atherosclerosis of the aorta without aneurysm. Subcentimeter retroperitoneal lymph nodes. No bowel obstruction. Colonic diverticulosis. The majority of the large bowel is decompressed. The appendix is not definitively seen. No acute fracture. Likely chronic superior endplate compression at T11-L1. IMPRESSION: 1. Motion degraded exam. No central pulmonary emboli identified. 2. Soft tissue edema surrounding the left shoulder with heterogeneity and enlargement of the left deltoid muscle. No acute fracture identified. Correlate with patient history and clinical exam findings. 3. Mid to lower lung zone predominant opacities of the lungs may represent a combination of atelectasis and scarring versus pneumonia. 4. No bowel obstruction or pneumoperitoneum. 5. Colonic diverticulosis. ACT 112: Negative or not required by law. The above report was generated using voice recognition software. It may contain grammatical, syntax or spelling errors. Electronically signed by: Deepak Forman M.D. 07/27/2022 11:49 AM Chest X-Ray 07/27/22 14:16 XR chest 1V portable HISTORY: 66 years-old Female intubation acute respiratory failure COMPARISON: CTA chest of same day TECHNIQUE: AP view of the chest FINDINGS: Endotracheal tube overlies the midline, 4.1 cm superior to the ashly. Cardiac silhouette is enlarged. Progressively worse and mixed interstitial and alveolar opacities of the lungs, right greater than left. No pneumothorax or large pleural effusion. Bones appear grossly intact. IMPRESSION: 1. Endotracheal tube terminates 4.1 cm superior to the ashly. 2. Progressive worsening of the right greater than left mixed interstitial and alveolar opacities suggestive of pulmonary edema versus aspiration. 3. No pneumothorax. ACT 112: Negative or not required by law. The above report was generated using voice recognition software. It may contain grammatical, syntax or spelling errors. Electronically signed by: Deepak Forman M.D. 07/27/2022 2:36 PM ECG Additional Comments: Sinus tachycardia Possible Left atrial enlargement Cannot rule out Anterior infarct , age undetermined Abnormal ECG When compared with ECG of 03-SEP-2001 16:13, Premature supraventricular complexes are no longer Present Vent. rate has increased BY 50 BPM Code Status & VTE Plan Code Status Full code Supervising Physician Co-Signing Physician Notes I personally saw and examined the patient. I verified all [place] points and agree with Stefan Sebastian PA-C with the following exceptions and/or additions: 66 year old female presents to the ER with fever, chills, shortness of breath and confusion. Patient had a cardiac arrest with presybeterian of rhythm prior to my arrival. Telemetry in ER with progressive worsening heart block as likely cause of her cardiac arrest presumably due to her multiple metabolic derangements (hyponatremia, metabolic acidosis), currently in NSR when seen. Perla catheter placed and patient not making urine. Discussed CRRT with Shaft Tender at time of admission as this would require transfer to another facility and given hemodynamics now improved will monitor in the ICU here and monitor urine output closely to determine if she needs to be transferred. Concern for multi-organ failure and will get DIC labs with next set of labs. O/E Unresponsive, PERRL, intubated, HS regular rate and rhythm, no murmurs, Chest clear to auscultation with equal chest expansion, Abdomen soft A/P Septic shock - switched antibiotics to Zosyn + vancomycin, unclear definitive source ?PNA. Otherwise plan as above. PG Care Time/CCT Total # of Minutes Spent Total Time Spent with Patient: Total time spent is greater than 50% in coordination of care (as documented) at patient's floor/unit and/or counseling patient: [place] [address] INT INP/OBS CARE 3/75MIN Patient Type Established Medical Decision Making High Complexity Diagnoses Cardiac arrest I46.9 Severe sepsis A41.9; R65.20 Acute renal failure N17.9 Acute respiratory failure J96.00 High anion gap metabolic acidosis E87.29 Elevated troponin R77.8 Hyponatremia E87.1 Elevated LFTs R79.89 Rhinovirus B34.8 HTN (hypertension) I10 Hypercholesterolemia E78.00
[2022-07-27] MEDS ORDERED: RAPID SEQUENCE INDUCTION BAG ONE (13:49)
[2022-07-27] MEDS ORDERED: NOREPINEPHRINE/D5W 4 MG/250 ML IV ONE (13:50)
--- NOTE | 2022-07-27 13:51 | Critical Care Consultation ---
Date of Consultation July 27, 2022 Assessment & Plan (1) High anion gap metabolic acidosis: (2) Rhinovirus: (3) Elevated LFTs: (4) Acute renal failure: (5) Elevated troponin: (6) Severe sepsis: (7) Cardiac arrest: (8) Hypercholesterolemia: (9) Acute respiratory failure with hypoxia: Plan Reason Critically Ill: 66-year-old female presented to the hospital with complaints of generalized lethargy and diarrhea, Past medical history: Hypertension, dyslipidemia patient was found to be in severe acidotic on presentation with acute renal failure. She had a was bradycardic and then went to cardiac arrest in the ER. Sent to the ICU for further care Neuro - [facility] ICU: Negative Cardiac - -- S/p cardiac arrest with shock Combination of septic plus cardiac Follow-up 2D echo Continue with vasopressor support to keep MAP greater than 65 -- Elevated troponin Likely type II NV Continue to trend Respiratory - -- VDRF Secondary to cardiac arrest Continue with ventilatory support Keep RASS -1 Daily sedation holidays and SBT's GI - -- Transaminitis Follow-up hepatitis profile Follow-up stool cultures RENAL/LYTES - --Acute renal failure Follow-up urine lites Monitor BUN/creatinine Avoid nephrotoxic medications Strict ins and outs -- Hyponatremia with hypochloremia Follow-up serum and urine osmolality -- HAGMA Delta-delta: 1.2 Likely sec to lactic acidosis Follow up serum osm, urine osm, urine lytes Follow up ABG Monitor - Sears catheter in place ENDO - -- Hypoglycemia on presentation Continue with D5 HEME - --Coagulopathy Could be from underlying shock Continue to monitor Monitor H&H ID - -- Leukocytosis with diarrhea, nausea and vomiting Likely gastroenterocolitis Follow-up stool culture Respiratory bio fire positive for entero-/rhinovirus Procalcitonin 96 Continue with antibiotic for gram-negative as well as anaerobic coverage --Prophylaxis VTE: Heparin GI: Pantoprazole Lines: Right femoral, peripheral, Sears Diet: N.p.o. Plan: Strict in and outs Continue with bicarb drip Calcium will be replaced Follow-up stool culture, blood culture and UA Follow-up toxicology screen Repeat labs in an hour. If patient has persistent acidosis even with ventilator management then she might need hemodialysis. Check for neurological status in the next 24-48 hours Critical condition of the patient with multiorgan failure was explained to the iva main who was at bedside. All question inquiries were answered in depth I have personally spent 65 minutes of critical care time in the direct management of this patient. This is a life/limb threatening event. This includes time spent evaluating patient, direct bedside care, chart review, placing orders, interpretation of diagnostic studies, discussion with consultants, patient, and family members, as well as other required patient management activities. This time is exclusive of all separately billable procedures, and teaching time and separate from and in addition to any other critical care service time. History of Present Illness History of Present Illness 66-year-old female presented to the hospital with complaints of generalized lethargy and diarrhea Past medical history: Hypertension, dyslipidemia In the ED patient was found to be hypertensive and acidotic A central line was placed in by the ED, she got 2 L of IV fluid and plan was to transfer to the ICU While the primary team was about to examine the patient patient got bradycardic and went into cardiac arrest CPR was started and she did get ROSC. She got 3 rounds of epi, 3 A of bicarb VBG initial pH showed 7. Initial blood glucose was 68. After code blood glucose was 48. 1 amp of bicarb was also given to the patient When the patient came to the ICU, patient's was also in the room, I got more information. Patient recently traveled to [place]. They were not in contact with any pets or domestic animals. She did have upper respite tract infection which was nasal congestion. They drove back from [place] on . Diarrhea started yesterday with multiple bouts of diarrhea watery today. Patient does not take any vkly-mzt-bdpxruv medications. No irately medications. Did not have any surgeries done on her in the past except for hysterectomy and appendectomy Allergies Allergy/AdvReac Type Severity Reaction Status Date / Time No Known Drug Allergies Allergy Verified 12/16/21 09:40 Home Medications Medication Instructions Recorded Confirmed Type aspirin 81 mg tablet,delayed 81 mg PO DAILY 01/25/19 07/27/22 History release atovaquone 250 mg-proguanil 100 mg See Rx Instructions PO .COMPLEX 01/03/22 07/27/22 Rx tablet (Malarone) #30 tabs amlodipine 5 mg tablet 5 mg PO DAILY #90 tabs 02/11/22 07/27/22 Rx atorvastatin 10 mg tablet 10 mg PO DAILY #90 tabs 02/11/22 07/27/22 Rx Patient History Medical History (Updated 07/27/22 @ 17:00 by Seferino Greer MD, [facility]) Breast lump resolved Diverticulosis of colon Encounter for annual routine gynecological examination Hemorrhoids Surgical History H/O dilation and curettage History of total abdominal hysterectomy and bilateral salpingo-oophorectomy S/P appendectomy Family History Sister Ovarian cancer Idiopathic thrombocytopenia purpura Father Idiopathic thrombocytopenia purpura Heart failure Denies family history of Breast cancer Colorectal cancer Social History Smoking Status: Unknown if ever smoked Do You Dip or Chew Tobacco: No; Hx Alcohol Use: Yes Hx Substance Use: No marital status: current occupational status: employed 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[employer], [employer] Feels Safe at Home: Yes caffeine: Yes Dental Care, Regularly: Yes Physical Activity Frequency: 3-4 Times per Week Seatbelt Use: always Sunscreen Use: Yes Review of Systems Review of Systems: All systems reviewed & are unremarkable except as noted in HPI & below Physical Exam Physical Exam: Constitutional: No acute distress HEENT: PERRLA, positive ETT Respiratory system: Decreased air entry bilaterally, no wheeze, no rhonchi, positive crackles bilaterally CVS: S1-S2 positive, no murmurs or gallops Abdomen: Soft, nontender, nondistended, positive bowel sounds x4, obese Extremities: +2 pulses bilaterally radialis/ dorsalis pedis, no cyanosis, no edema Neuro: Breathing with the vent, patient was just intubated, no gag Psych: Unable to assess G/U: Positive Sears Skin: no rashes, warm and dry Lymphatic: no cervical or axillary lymphadenopathy Results & Data Results & Data Vital Signs (Past 12 Hours) Vital Signs Temp Pulse Pulse Resp BP BP Pulse Ox 07/27/22 10:22 94 07/27/22 10:22 118 H 36 H 94 07/27/22 10:22 36.5 C 118 H 36 H 78/57 L 94 07/27/22 13:27 109 H 24 93/56 L 100 07/27/22 11:45 118 H 28 H 91/53 L 07/27/22 10:22 112 H O2 Del Method O2 Flow Rate 07/27/22 10:22 Non-rebreather 15 07/27/22 10:22 Non-rebreather 07/27/22 10:22 Non-rebreather 07/27/22 13:27 Oxymask 4 07/27/22 11:45 07/27/22 10:22 Laboratory Results 07/27/22 10:32 07/27/22 10:32 Coding Level of Care Code 94976 CRITICAL CARE 1ST 30-74M Diagnoses High anion gap metabolic acidosis E87.29 Rhinovirus B34.8 Elevated LFTs R79.89 Acute renal failure N17.9 Elevated troponin R77.8 Severe sepsis A41.9; R65.20 Cardiac arrest I46.9 Hypercholesterolemia E78.00 Acute respiratory failure with hypoxia J96.01 Time Spent (min) 65
[2022-07-27] MEDS ORDERED: STAT IV Infusion **Titration per Protocol STA ×4 (13:53→16:28)
[2022-07-27] MEDS ORDERED: SODIUM BICARBONATE 8.4% INJ 50 MEQ/50 ML VIAL ONE (14:06)
[2022-07-27] MEDS ORDERED: NOREPINEPHRINE/D5W 4 MG/250 ML PLCT IV SCH (14:15)
[2022-07-27] MEDS ORDERED: VASOPRESSIN 20 UNITS in 0.9 % SODIUM CHLORIDE 100 ML IV SCH (14:15)
[2022-07-27] MEDS ORDERED: SODIUM BICARBONATE 8.4% 150 MEQ in WATER, STERILE 1,000 ML IV SCH (14:15)
[2022-07-27] MEDS ORDERED: PIPERACILLIN/TAZOBACTAM 4.5 GM/120 ML BAG IV ONE (14:16)
[2022-07-27] MEDS ORDERED: SODIUM BICARBONATE 8.4% 150 MEQ in DEXTROSE 5% 1,000 ML IV SCH (14:30)
--- NOTE | 2022-07-27 14:37 | XRay Report ---
XR chest 1V portable HISTORY: 66 years-old Female intubation acute respiratory failure COMPARISON: CTA chest of same day TECHNIQUE: AP view of the chest FINDINGS: Endotracheal tube overlies the midline, 4.1 cm superior to the ashly. Cardiac silhouette is enlarged . Progressively worse and mixed interstitial and alveolar opacities of the lungs, right greater than left. No pneumothorax or large pleural effusion. Bones appear grossly intact. IMPRESSION: 1. Endotracheal tube terminates 4.1 cm superior to the ashly. 2. Progressive worsening of the right greater than left mixed interstitial and alveolar opacities sug gestive of pulmonary edema versus aspiration. 3. No pneumothorax. ACT 112: Negative or not required by law. The above report was generated using voice recognition software. It may contain grammatical, syntax o r spelling errors. Electronically signed by: Deepak Forman M.D. 07/27/2022 2:36 PM
[2022-07-27] MEDS: NOREPINEPHRINE/D5W 4 MG/250 ML PLCT IV SCH ×4 (15:01→20:05)
[2022-07-27 15:06] LABS: Hematocrit (blood only) 24.2 % (37.0-47.0); Hemoglobin 8.3 g/dl (12.0-16.0); Mean Corpuscular Hemoglobin 27.8 pg (25.0-34.0); Mean Corpuscular Hgb Conc 34.3 g/dL (32.0-36.0); Mean Corpuscular Volume 80.9 fL (80.0-100.0); Mean Platelet Volume 10.6 fL (9.4-12.4); Nucleated RBC # (auto) 0.02 K/uL (0-0.12); Nucleated RBC % (auto) 0.2 %; Platelet Count 210 K/uL (130-400); RDW Coefficient of Variation 13.4 % (11.5-14.5); RDW Standard Deviation 39.4 fL (36.4-46.3); Red Blood Count 2.99 M/uL (4.20-5.40); White Blood Count 9.45 K/ul (4.8-10.8)
[2022-07-27 15:27] LABS: Calcium 5.6 mg/dl (8.6-10.3)
[2022-07-27 15:28] LABS: Albumin Globulin Ratio 0.9 (0.9-2); Albumin Level 1.6 gm/dl (3.4-5.0); Bilirubin,Total 1.2 mg/dl (0.2-1.0); Creatinine Clr Calc Pharmacy 12.6 ml/min; Est GFR (African American) 11.7 ml/min; Est GFR (Non-African American) 10.1 ml/min; Globulin 1.8 gm/dl (2.5-4.0); Magnesium 2.1 mg/dl (1.7-2.4); Phosphorus 10.1 mg/dl (2.5-4.9); Potassium 4.2 mmol/L (3.5-5.1); Total Protein 3.4 gm/dl (6.0-8.3)
[2022-07-27 15:29] LABS: Basophils # (auto) 0.04 K/uL (0-0.2); Basophils % (auto) 0.4 %; Dohle Bodies 1+; Echinocytes 3+; Eosinophils # (auto) 0.09 K/uL (0-0.50); Immature Granulocytes % (auto) 8.5 %; Lymphocytes # (auto) 0.85 K/uL (1.2-3.4); Monocytes # (auto) 0.15 K/uL (0.11-0.59); Monocytes % (auto) 1.6 %; Neutrophils # (auto) 7.52 K/uL (1.40-6.50); Neutrophils % (auto) 79.5 %; Polychromasia 1+; Toxic Vacuolation 2+
[2022-07-27] MEDS ORDERED: CALCIUM CHLORIDE 10% 1,000 MG in DEXTROSE 5% 50 ML IV STA ×2 (15:30→18:45)
[2022-07-27 15:40] LABS: INR 1.6 (0.9-1.1); Partial Thromboplastin Ratio 2.9; Prothrombin Time 16.8 Seconds (9.0-12.0)
[2022-07-27 15:42] LABS: Partial Thromboplastin Time 80.8 Seconds (21.0-31.0)
[2022-07-27] MEDS ORDERED: SODIUM BICARB 8.4% INJ 50 MEQ/50 ML SYR IV ONE ×2 (15:45→21:31)
[2022-07-27] MEDS ORDERED: PROPOFOL IV EMULSION 10 MG/ML 100 ML VIAL IV ONE (15:49)
--- NOTE | 2022-07-27 15:54 | CT Scan Report ---
CT head/brain wo con CLINICAL HISTORY: 66 years-old Female with Unresponsive. Acutely altered mental status TECHNIQUE: Multiple axial CT images of the head were obtained without contrast. A dose lowering tech nique was utilized adhering to the principles of ALARA. CT DOSE: 547.75 mGy.cm COMPARISON: None. FINDINGS: No acute intracranial hemorrhage, midline shift, intracranial mass, hydrocephalus, territorial ischem ia or abnormal extra-axial collection. Hyperattenuation history venous sinuses, cerebellar tentorium vascular structures secondary to recent CTA a few hours earlier. There is again motion degraded. Whit e matter hypodensities suggestive of chronic microvascular ischemic disease. The calvarium is intact. Nasopharyngeal secretions. The paranasal sinuses, mastoid air cells, and mi ddle ear cavities are clear. IMPRESSION: 1. Limited study secondary to recent IV contrast. 2. No acute intracranial abnormality. No change compared to the study obtained a few hours earlier. ACT 112: Negative or not required by law. The above report was generated using voice recognition software. It may contain grammatical, syntax o r spelling errors. Electronically signed by: Deepak Forman M.D. 07/27/2022 3:52 PM
[2022-07-27 16:12] LABS: Acetaminophen 4 ug/ml (10-30); Salicylate < 3.0 mg/dl (3.0-30)
[2022-07-27] MEDS ORDERED: ACETAMINOPHEN 1,000 MG/100 ML VIAL IV PRN (16:28)
[2022-07-27] MEDS ORDERED: fentaNYL BOLUS from BAG IV PRN (16:28)
[2022-07-27] MEDS ORDERED: fentaNYL citrate 2,500 MCG/250 ML BAG IV SCH (16:30)
[2022-07-27] MEDS ORDERED: PHYTONADIONE 5 MG in DEXTROSE 5% 50 ML IV ONE (16:30)
[2022-07-27] MEDS: ICU Protocol for HYPERglycemia SCH ×2 (17:06→20:55)
[2022-07-27] MEDS ORDERED: PIPERACILLIN/TAZOBACTAM 4.5 GM (over 30 mins) IV ONE (17:30)
[2022-07-27 17:41] LABS: Appearance Urine Turbid (Clear); Bacteria Urine Automated Negative (Negative); Bilirubin Urine Negative (Negative); Blood Urine 3+ (Negative); Color Urine Dark Yellow; Glucose Urine UA Trace (Negative); Ketones Urine Negative (Negative); Leukocyte Esterase Urine 1+ (Negative); Nitrite Urine Negative (Negative); Protein Urine 3+ (Negative); Urobilinogen Urine Negative (Negative); WBC Urine Automated >30 /hpf (0-5); pH Urine 5.5 (4.5-7.5)
[2022-07-27] MEDS ORDERED: ICU ELECTROLYTE REPLACEMENT PROTOCOL SCH (18:00)
[2022-07-27 18:01] LABS: Potassium Random Urine 33.9 mmol/L
[2022-07-27 18:06] LABS: iSTAT Allen Test Pass; iSTAT Art Bld Gas pCO2 Correct 47 mmHg (35-46); iSTAT Art Bld Gas pH Corrected 7.121 (7.35-7.45); iSTAT Arterial Blood Gas HCO3 16 meg/L (19-24); iSTAT Arterial Blood Gas pCO2 49 mmHg (35-46); iSTAT Arterial Blood Gas pH 7.11 (7.35-7.45); iSTAT Arterial Blood Gas pO2 < 32 mmHg (80-95); iSTAT Arterial Blood Gas pO2 C 28; iSTAT Carbon Dioxide 17 mmol/L (24-31); iSTAT Hematocrit 24 % (37-47); iSTAT Hemoglobin 8.2 g/dl (12.0-16.0); iSTAT Potassium 3.2 mmol/L (3.3-5.0); iSTAT Site R Radial; iSTAT Sodium 123 mmol/L (135-144)
[2022-07-27 18:09] LABS: Amphetamines+Metham, Urine Neg (Neg); Barbiturates, Urine Neg (Neg); Benzodiazepine, Urine Neg (Neg); Cocaine, Urine Neg (Neg); Creatinine Urine Random 69.2 mg/dl; MDMA (Ecstacy), Urine Neg (Neg); Methadone, Urine Neg (Neg); Opiate, Urine Neg (Neg); Phencyclidine, Urine Neg (Neg)
[2022-07-27 18:19] LABS: Hematocrit (blood only) 25.6 % (37.0-47.0); Mean Corpuscular Hemoglobin 27.8 pg (25.0-34.0); Mean Corpuscular Hgb Conc 35.2 g/dL (32.0-36.0); Mean Platelet Volume 10.2 fL (9.4-12.4); Nucleated RBC # (auto) 0.02 K/uL (0-0.12); Nucleated RBC % (auto) 0.2 %; Platelet Count 252 K/uL (130-400); RDW Coefficient of Variation 13.3 % (11.5-14.5); RDW Standard Deviation 38.5 fL (36.4-46.3); Red Blood Count 3.24 M/uL (4.20-5.40); White Blood Count 9.02 K/ul (4.8-10.8)
[2022-07-27 18:22] LABS: BUN Creatinine Ratio 14.3 (10-20); Calcium 6.6 mg/dl (8.6-10.3); Creatinine Clr Calc Pharmacy 12.7 ml/min; Est GFR (African American) 11.8 ml/min; Est GFR (Non-African American) 10.2 ml/min; Potassium 3.9 mmol/L (3.5-5.1)
[2022-07-27 18:37] LABS: Basophils # (auto) 0.04 K/uL (0-0.2); Basophils % (auto) 0.4 %; Dohle Bodies 1+; Echinocytes 3+; Eosinophils # (auto) 0.08 K/uL (0-0.50); Eosinophils % (auto) 0.9 %; Immature Granulocytes # (auto) 0.17 K/uL (0.01-0.20); Immature Granulocytes % (auto) 1.9 %; Lymphocytes % (auto) 5.5 %; Monocytes # (auto) 0.12 K/uL (0.11-0.59); Monocytes % (auto) 1.3 %; Neutrophils # (auto) 8.11 K/uL (1.40-6.50); Polychromasia 1+; Toxic Vacuolation 2+
[2022-07-27 18:40] LABS: Albumin Globulin Ratio 0.9 (0.9-2); Albumin Level 1.7 gm/dl (3.4-5.0); Bilirubin,Total 1.4 mg/dl (0.2-1.0); Total Protein 3.7 gm/dl (6.0-8.3)
[2022-07-27] MEDS ORDERED: AcetylCYSTEINE IV 21 HR REGIMEN (>40KG) IV STA (18:41)
[2022-07-27 19:07] LABS: Fibrinogen 362 mg/dl (184-400); INR 1.6 (0.9-1.1); Partial Thromboplastin Ratio 1.7; Prothrombin Time 16.8 Seconds (9.0-12.0)
[2022-07-27 19:11] LABS: D Dimer > 35200 ug/L FEU (0-500)
[2022-07-27 19:12] LABS: Partial Thromboplastin Time 47.3 Seconds (21.0-31.0)
[2022-07-27] MEDS ORDERED: propofoL 1,000 MG/100 ML VIAL IV SCH (19:15)
--- NOTE | 2022-07-27 19:17 | Communication Note ---
Date of Service: July 27, 2022 Critical CARE addendum: In ICU patient is still on vasopressin as well as Levophed. She still requiring 100% FiO2. I had to increase the PEEP to 12. Her s aturation right now is 93-94%. ABG still shows pH of 7.12. She has not made any urine since coming to the hospital. Total 3 mL. Latest labs shows worsening LFTs. Patient seems to be going into fulminant liver failure, multiorgan failure. D-dimer significantly elevated which will be expected in somebody who is in shock with liver failure. Lactate is still going up at 14.6. Calcium chloride being given to the patient Hepatitis profile is still pending. I will start the patient on N-acetylcysteine. Patient will be transferred to tertiary center for CRRT I have personally spent additional 35 minutes of critical care time in the direct management of this patient. This is a life/limb threatening event. This includes time spent evaluating patient, direct bedside care, chart review, placing orders, interpretation of diagnostic studies, discussion with consultants, patient, and family members, as well as other required patient management activities. This time is exclusive of all separately billable procedures, and teaching time and separate from and in addition to any other critical care service time. Please note the above document was generated using voice recognition software. It may contain grammatical, syntax or spelling errors. Coding Level of Care Code 62961 CRITICAL CARE EA ADD 30M Time Spent (min) 35
[2022-07-27] MEDS ORDERED: SODIUM BICARB 8.4% INJ 50 MEQ/50 ML SYR IV STA ×2 (20:32)
--- NOTE | 2022-07-27 20:32 | Procedure Note ---
Procedure Note Date of Service July 27, 2022 Note ARTERIAL LINE PROCEDURE NOTE: Procedure: Arterial Line Placement Attending: Dr. Greer Provider: GRANT Frederick Indication: Monitoring on Pressors Anesthesia: Lidocaine 1% Line placed emergently in the setting of septic shock requiring multiple vasopressors and need for continuous hemodynamic monitoring. A time-out was completed verifying correct patient, procedure, site, positioning, and implant(s) or special equipment if applicable. Patient's left groin was prepped and draped in the usual sterile fashion. Ultrasound guidance was used to aid needle placement. A Finder needle was introduced into the Left femoral artery. Good blood flow was observed and wire was inserted into the arterial, and placement was confirmed with ultrasound. The wire was then exchanged for 20 guauge arterial catheter, Using Seldinger technique. Good blood flow was observed and the catheter was hooked up to the transducer and Good waveform was observed. Catheter was then sutured in place and sterile dressing was applied. The patient tolerated the procedure well. Blood Loss: Minimal Complications: None Coding CPT Codes Tubes, Drains, and Vasc Access - Tubes, Drains, and Vasc Access: [id number] Arterial Cath/Cannulation Sampling/Monitoring/Transfusion ([id number]) Tubes, Drains, and Vasc Access - Tubes, Drains, and Vasc Access: [id number] Ultrasound Guidance For Vascular ([id number]) [facility] [place] Codes (Charges) Tubes, Drains, and Vasc Access Procedure 1: Tubes, Drains, and Vasc Access: [id number] Arterial Cath/Cannulation Sampling/Monitoring/Transfusion Procedure 2: Tubes, Drains, and Vasc Access: [id number] Ultrasound Guidance For Vascular
[2022-07-27 20:43] LABS: iSTAT Art Bld Gas pCO2 Correct 34 mmHg (35-46); iSTAT Art Bld Gas pH Corrected 7.086 (7.35-7.45); iSTAT Arterial Blood Gas HCO3 10 meg/L (19-24); iSTAT Arterial Blood Gas pCO2 35 mmHg (35-46); iSTAT Arterial Blood Gas pH 7.07 (7.35-7.45); iSTAT Arterial Blood Gas pO2 53 mmHg (80-95); iSTAT Arterial Blood Gas pO2 C 49; iSTAT Carbon Dioxide 11 mmol/L (24-31); iSTAT Hematocrit 23 % (37-47); iSTAT Hemoglobin 7.8 g/dl (12.0-16.0); iSTAT Potassium 4.4 mmol/L (3.3-5.0); iSTAT Site Art Line; iSTAT Sodium 121 mmol/L (135-144)
--- NOTE | 2022-07-27 20:44 | Communication Note ---
Date of Service: July 27, 2022 Unfortunately patient appears to have worsening acidosis. She is not making urine and is requiring high dose vasopressors. She also remains severely hypoxi c. It was determined that the patient would benefit to transfer to tertiary center for possible CRRT. I spoke with Dr. Bruce at [facility], who is excepted the patient to the ICU. She is now awaiting transfer via [facility]. We will continue with current plan for medical management here in the ICU pending transfer. CRITICAL CARE TIME - I have personally spent 35 minutes of critical care time in the direct management of this patient. This is a life/limb threatening event. This includes time spent evaluating patient, direct bedside care, chart review, placing orders, interpretation of diagnostic studies, discussion with consultants, patient, and family members, as well as other required patient management activities. This time is exclusive of all separately billable procedures, and teaching time and separate from and in addition to any other critical care service time. Coding Level of Care Code 78284 CRITICAL CARE EA ADD 30M
[2022-07-27] MEDS ORDERED: GLUCOSE 10 TAB/TUBE PO PRN (20:53)
[2022-07-27] MEDS ORDERED: DEXTROSE 50% 50 ML SYRINGE IV PRN (20:53)
[2022-07-27] MEDS ORDERED: GLUCOSE 40% GEL 15 GM TUBE PO PRN (20:53)
[2022-07-27] MEDS ORDERED: CARBOHYDRATES FOR HYPOGLYCEMIA PO PRN (20:53)
[2022-07-27] MEDS ORDERED: GLUCAGON FOR INJ 1 MG VIAL SQ PRN (20:53)
[2022-07-27] MEDS ORDERED: HEPARIN SOD 5,000 UNIT/0.5 ML VIAL SQ SCH (21:00)
[2022-07-27] MEDS ORDERED: DEXTROSE 50% 50 ML SYRINGE IV ONE (21:31)
--- NOTE | 2022-07-27 22:01 | Discharge Summary ---
Date of Service July 27, 2022 Admission HPI Per Admitting Provider Kya is a 66 year old female with a PMH significant for HTN, hyperlipidemia, vit D deficiency who presented to the [facility] ED on 07/27/22 with complaints of increased WOB and confusion. Per the ED staff, the patients iva main reported that they returned home from a trip to [place] on 07/24. Shortly after their plane landed the patient developed a fever. Since then she has been experiencing fever, chills, generalized weakness and increased WOB. In the ED she was noted to be hypotensive at 78/57, tachycardic at 112, respirations of 36, initially stable on 15L NRB, and afebrile. Labs were significant for a leukocytosis of 20 with left shift of 17, platelets of 409, cr of 4.67 (baseline appears to be 0.9), bun of 60, AG of 28 with bicarb of 9, chloride of 84, sodium of 121, glucose of 68, total bili of 2.0, direct bili of 1.4, ALT of 101, AST of 146, alk phos of 153, initial high sen trop of 26, lactate of 14, VBG pH of 7.0, pCO2 of 41 and pO2 of 33, INR of 1.2, procal of 96, Entero/rhinovirus positive. CTA of the head w/wo con was read as Motion degraded exam without acute intracranial abnormality identified. 2. Unremarkable CTA.. CTA of the chest and CT of the abd/pelvis w/IV con was read as 1. Motion degraded exam. No central pulmonary emboli identified. 2. Soft tissue edema surrounding the left shoulder with heterogeneity and enlargement of the left deltoid muscle. No acute fracture identified. Correlate with patient history and clinical exam findings. 3. Mid to lower lung zone predominant opacities of the lungs may represent a combination of atelectasis and scarring versus pneumonia. 4. No bowel obstruction or pneumoperitoneum. 5. Colonic diverticulosis.". Prior to admission the patient was given 3L NSS, Vancomycin, ceftriaxone, and a duoneb treatment. At the time of the exam the patient was slouched to the left, being held up by nursing staff who was trying to arouse her without success. The patient would not respond to voice or sternal rub, was tachypneic, and bradycardic in the 40- 50's. I immediately went and got the ED provider as he had given sign out that the patient had been alert and oriented. Upon re-examination of the patient the ED physician confirmed that this was a sudden and severe change in her condition. The patient became progressively more bradycardic and tachypneic. The ED staff began intubation as I took the patient's to the [facility] e room to speak further with him. He states that they had recently arrived back [place] the [place] after traveling in [place] and [place]. They returned home on 07/24. He states that approximately a week prior to 07/24 the patient developed congestion with a non-productive cough initially. As the week progressed the patient started to have green-yellow sputum production with her cough and sinus drainage. Her appetite had been poor over this time. He denies her complaining of headache, neurologic symptoms, chest pain, abd/pain, or urinary symptoms. After they arrived home the patient began having 3-4 episodes of non-bloody diarrhea daily. She was only able to have sips of water during this time as well. This am she was very weak and seemed more confused with increased respiratory distress, prompting him to bring her to the ED. He states that she is a Full Code and he is her POA. As I was speaking with the patient's the patient reportedly lost her pulse and a code blue was called. I explained to the that the patient's heart had stopped and they will be doing CPR. I instructed him to stay in the [facility] room and he will be updated shortly. Principal Diagnosis Septic Shock Discharge Exam Physical Exam: General:Unresponsive, ashen and toxic appearing Chest/Pulm:Tachypneic with symmetrical chest expansion Musculoskeletal:Not moving extremities spontaneously, slouched to the left and leaning on nurse Extremities:Weak peripheral pulses with pallor in the upper and lower extremities Skin:Ashen Neuro:Unresponsive to voice and painful stimuli Psych:Unconscious Discharge Data Allergies Allergy/AdvReac Type Severity Reaction Status Date / Time No Known Drug Allergies Allergy Verified 12/16/21 09:40 Consultations 07/27/22 13:26 Consult Steel Die Press Set Up Operator Routine 07/27/22 14:38 ED Decision to Admit Stat 07/27/22 16:02 Consult Steel Die Press Set Up Operator Routine 07/27/22 16:53 Consult Nephrology Stat 07/27/22 19:24 Burn CD for patient Stat Ordered Studies 07/27/22 10:22 CT angio chest PE protocol Stat 07/27/22 10:28 CT angio head wo/w Stat 07/27/22 10:44 CT Abd and Pelvis [CT abd pelvis IV con only] Stat 07/27/22 15:07 CT head/brain wo con Stat Hospital Course (1) Septic shock: -Significant leukocytosis, procal of 96, initial lactate at 14 -Continue broad spectrum abx at this time as differential includes respiratory and GI sources -Continue vasprossors due to hypotension -Follow blood and urine cultures (2) Cardiac arrest: Combination of septic plus cardiac Follow-up 2D echo Continue with vasopressor support to keep MAP greater than 65 (3) Acute renal failure: Follow-up urine lites Monitor BUN/creatinine Avoid nephrotoxic medications Strict ins and outs (4) Acute respiratory failure: Secondary to cardiac arrest Continue with ventilatory support Keep RASS -1 Daily sedation holidays and SBT's (5) High anion gap metabolic acidosis: Delta-delta: 1.2 Likely sec to lactic acidosis Follow up serum osm, urine osm, urine lytes Follow up ABG (6) Elevated troponin: Likely type II CA Continue to trend (7) Hyponatremia: Follow-up serum and urine osmolality (8) Elevated LFTs: Follow-up hepatitis profile Follow-up stool cultures (9) Rhinovirus: -Positive today -Continue ventilator management and supportive care Plan Patient to be transferred to [facility] for CRRT Total Time Total Time Spent Total Time Spent (In Minutes): 30 Discharge Plan Discharge Items Patient Disposition: Transfer Acute Care Hospital Reason For Visit: GEN WEAKNESS, SOB, AMS Discharge Diagnosis: Septic Shock Activity: Per Instructions section Non-emergency contact: Primary Care Provider Call non-emergency contact if: you have any medication questions, your pain is worsening and your temperature is above 101 Follow-up/Referrals: ProPuneet MD [Primary Care Provider] - Diet: Regular Addtl Attending Provider Instructions: Pt was emergenty transferred to [facility] for CRRT due to septic shock. Please see discharge summary for further details. Pending Studies at Discharge: No Stand-Alone Forms: [employer] Skilled Items Patient informed of condition?: Yes DNR: No Discharge Level of Care: Other Communicable Disease: No Discharge Prognosis: Deteriorating Lines: Peripheral IV Urinary Catheter: Yes Medications and DC Order Prescriptions: Continued atovaquone-proguanil [Malarone] 250-100 mg tablet See Rx Instructions PO .COMPLEX Qty: 30 0RF Rx Instructions: take 1 tab once daily x1 day before exposure, during time in area, and x7 days after leaving area PO amlodipine 5 mg tablet 5 mg PO DAILY Qty: 90 3RF atorvastatin 10 mg tablet 10 mg PO DAILY Qty: 90 3RF aspirin 81 mg tablet,delayed release (DR/EC) 81 mg PO DAILY Discharge Orders: Discharge Order (Routine); Ordered 07/27/22 Ordered By: Romario Mcdonald Admission Data Admit Date/Time: 07/27/22 13:45 Attending Provider: Porter Malik Admit Provider: Porter Malik Primary Care Provider: Puneet Mcrae Other Providers: Seferino Greer ; Porter Malik ; Roselyn Oreilly Other Interventions: Discharge Summary Assessment (RN) Last Done: 07/27/22 21:53 Coding [place] [address] INP/OBS DISCH >30 MIN Patient Type Established History Comprehensive Exam Comprehensive Medical Decision Making High Complexity Diagnoses Septic shock A41.9; R65.21 Cardiac arrest I46.9 Acute renal failure N17.9 Acute respiratory failure J96.00 High anion gap metabolic acidosis E87.29 Elevated troponin R77.8 Hyponatremia E87.1 Elevated LFTs R79.89 Rhinovirus B34.8
[2022-07-28] MEDS ORDERED: INSULIN ASPART PER UNIT CHARGE SC SCH
[2022-07-28] MEDS ORDERED: PIPERACILLIN/TAZOBACTAM 4.5 GM CI (over 4 hours) IV SCH (01:00)
[2022-07-28 01:30] LABS: A calco-baum cmplx NotReported Not Detected (NotDetected); Bact fragilis Not Reported Not Detected (NotDetected); C auris Not Reported Not Detected (NotDetected); Calbicans Not Reported Not Detected (NotDetected); Candida glabrata Not Reported Not Detected (NotDetected); Candida krusei Not Reported Not Detected (NotDetected); Cneoformans/gatti Not Reported Not Detected (NotDetected); Cparapsilosis Not Reported Not Detected (NotDetected); Ctropicalis Not Reported Not Detected (NotDetected); E cloacae compx Not Reported Not Detected (NotDetected); Efaecalis Not Reported Not Detected (NotDetected); Efaecium Not Reported Not Detected (NotDetected); Enterobacterales Not Reported Not Detected (NotDetected); Escherichia coli Not Reported Not Detected (NotDetected); H influenzae Not Reported Not Detected (NotDetected); K aerogenes Not Reported Not Detected (NotDetected); Koxytoca Not Reported Not Detected (NotDetected); Kpneumoniae grp Not Reported Not Detected (NotDetected); Lmonocyt Not Reported Not Detected (NotDetected); N meningitidis Not Reported Not Detected (NotDetected); P aeruginosa Not Reported Not Detected (NotDetected); Proteus spp Not Reported Not Detected (NotDetected); Salmonella spp Not Reported Not Detected (NotDetected); Smarcescens Not Reported Not Detected (NotDetected); Staph lugdunensis Not Reported Not Detected (NotDetected); Staph spp. Not Reported Not Detected (NotDetected); Staphaureus Not Reported Not Detected (NotDetected); Staphepi Not Reported Not Detected (NotDetected); Stenmaltophilia Not Reported Not Detected (NotDetected); Strep agal(GrpB) Not Reported Not Detected (NotDetected); Strep pneum Not Reported Not Detected (NotDetected); Strep pyog (GrpA) Not Reported DETECTED (NotDetected); Strep spp Not Reported DETECTED (NotDetected); Streptococcus spp DETECTED (NotDetected)
[2022-07-28 01:51] LABS: Streptococcus pyogenes (GrpA) DETECTED (NotDetected)
[2022-07-28 09:46] LABS: iSTAT Arterial Blood Gas HCO3 11 meg/L (19-24); iSTAT Arterial Blood Gas pCO2 43 mmHg (35-46); iSTAT Arterial Blood Gas pH 7.02 (7.35-7.45); iSTAT Arterial Blood Gas pO2 81 mmHg (80-95); iSTAT Carbon Dioxide 12 mmol/L (24-31); iSTAT Hematocrit 22 % (37-47); iSTAT Hemoglobin 7.5 g/dl (12.0-16.0); iSTAT Potassium 4.1 mmol/L (3.3-5.0); iSTAT Sodium 126 mmol/L (135-144)
--- NOTE | 2022-07-28 22:38 | Electrocardiogram Report ---
Test Reason : Blood Pressure : / mmHG Vent. Rate : 110 BPM Atrial Rate : 110 BPM P-R Int : 176 ms QRS Dur : 100 ms QT Int : 336 ms P-R-T Axes : 050 082 037 degrees QTc Int : 454 ms Sinus tachycardia Possible Left atrial enlargement Cannot rule out Anterior infarct , age undetermined Abnormal ECG When compared with ECG of 03-SEP-2001 16:13, Vent. rate has increased BY 50 BPM Confirmed by Eliu Kenny ([id number]) on 07/28/2022 10:38:26 PM Referred By: Confirmed By:Eliu Kenny
--- NOTE | 2022-07-29 06:14 | Electrocardiogram Report ---
Test Reason : Blood Pressure : / mmHG Vent. Rate : 137 BPM Atrial Rate : 000 BPM P-R Int : 000 ms QRS Dur : 096 ms QT Int : 290 ms P-R-T Axes : 000 121 028 degrees QTc Int : 437 ms Atrial fibrillation with rapid ventricular response Right axis deviation Low voltage QRS Abnormal ECG When compared with ECG of 27-JUL-2022 10:16, Atrial fibrillation has replaced Sinus rhythm QRS axis Shifted right Confirmed by Eliu Kenny ([id number]) on 07/29/2022 6:14:22 AM Referred By: REFERRED SELF Confirmed By:Eliu Kenny
--- NOTE | 2022-07-29 06:27 | Electrocardiogram Report ---
Test Reason : Blood Pressure : / mmHG Vent. Rate : 100 BPM Atrial Rate : 100 BPM P-R Int : 202 ms QRS Dur : 110 ms QT Int : 330 ms P-R-T Axes : 059 094 053 degrees QTc Int : 425 ms Normal sinus rhythm Rightward axis Low voltage QRS Cannot rule out Anterior infarct , age undetermined Anterolateral ST elevation, consider injury pattern Abnormal ECG When compared with ECG of 27-JUL-2022 14:10, Sinus rhythm has replaced Atrial fibrillation ST more elevated in Anterolateral leads Confirmed by Eliu Kenny ([id number]) on 07/29/2022 6:27:15 AM Referred By: REFERRED SELF Confirmed By:Eliu Kenny
[2022-07-29 10:48] LABS: HBSAG NON-REACTIVE (NON-REACTIVE); Hepatitis A Antibody IgM NON-REACTIVE (NON-REACTIVE); Hepatitis B Core Antibody IgM NON-REACTIVE (NON-REACTIVE)
[2022-07-30 16:26] LABS: Uric Acid, Random Urine 14 mg/dL
== END 2022-07-27 21:32 | disposition short-term general hospital (02) | DRG 871 ==
LOC: ED 10:07 → 1E 13:45
DX: Z79.82 Long term (current) use of aspirin; R65.21 Severe sepsis with septic shock; E87.21 Acute metabolic acidosis; E87.1 Hypo-osmolality and hyponatremia; I21.A1 Myocardial infarction type 2; E78.00 Pure hypercholesterolemia, unspecified; E78.5 Hyperlipidemia, unspecified; Z99.11 Dependence on respirator [ventilator] status; J96.01 Acute respiratory failure with hypoxia; I46.9 Cardiac arrest, cause unspecified; I10 Essential (primary) hypertension; E55.9 Vitamin D deficiency, unspecified; A41.9 Sepsis, unspecified organism; B34.8 Other viral infections of unspecified site; N17.9 Acute kidney failure, unspecified; Z79.899 Other long term (current) drug therapy